=== PATIENT | female | born 1980 | race Caucasian/White ===

== ENCOUNTER 2016-08-27 03:14 | Inpatient (IN) | payer BC ==
[2016-08-27] MEDS ORDERED: Sodium Citrate/Citric Acid* 15 ML UDC PO ONE (06:58)
[2016-08-27] MEDS ORDERED: Buffered Lidocaine 1% SYRIN* 3 ML/SYR SYRINGE INTRADERM ONE (06:58)
[2016-08-27] MEDS ORDERED: Sodium Citrate/Citric Acid* 15 ML UDC ONE (07:11)
[2016-08-27] MEDS ORDERED: ceFAZolin 2 GM PREMIX(*) 2 GM/50 ML BAG IVPB ONE (07:12)
[2016-08-27] MEDS ORDERED: Morphine PF AMP (0.5MG/ML)* 5 MG/10 ML AMP ONE (07:38)
[2016-08-27] MEDS ORDERED: OXYTOCIN* 10 UNITS/ML 1 ML VIAL ONE (07:38)
[2016-08-27] MEDS ORDERED: Phenylephrine IV* 40 MCG/ML 10 ML SYRINGE ONE (07:38)
[2016-08-27] MEDS ORDERED: fentaNYL* 50 MCG/ML 2 ML VIAL (100 MCG VIAL) IV PRN (08:39)
[2016-08-27] MEDS ORDERED: Ondansetron INJ* 2 MG/ML VIAL IV PRN ×2 (08:39→08:40)
[2016-08-27] MEDS ORDERED: diPHENhydraMINE IV* 50 MG/ML 1 ml VIAL (BENADRYL) IV PRN (08:39)
[2016-08-27] MEDS ORDERED: oxyCODONE/Acetamin 5/325 MG* TAB PO PRN ×3 (08:40→09:37)
[2016-08-27] MEDS ORDERED: Naloxone* 0.4 MG/ML 1 ML VIAL IV PRN (08:40)
[2016-08-27] MEDS ORDERED: Dibucaine 1% 28.35 GM TUBE PR PRN (09:37)
[2016-08-27] MEDS ORDERED: Witch Hazel PAD* JAR TOPICAL PRN (09:37)
[2016-08-27] MEDS ORDERED: Acetaminophen TAB* 325 MG PO PRN (09:37)
[2016-08-27] MEDS ORDERED: Glycerin ADULT SUPP PR PRN (09:37)
[2016-08-27] MEDS ORDERED: Famotidine TAB* 20 MG PO PRN (09:39)
[2016-08-27] MEDS ORDERED: Oxytocin in LR* 20 UNITS/1,000 ML BAG IVPB SCH (10:00)
[2016-08-27] MEDS: Ketorolac INJ* 30 MG/ML 1 ML VIAL IV PRN ×3 (11:13→23:42)
[2016-08-27] MEDS: diPHENhydraMINE IV* 50 MG/ML 1 ml VIAL (BENADRYL) IV PRN ×2 (11:23→18:23)
[2016-08-27] MEDS: Simethicone CHEW TAB* 80 MG PO SCH ×3 (12:13→21:01)
[2016-08-27] MEDS: Docusate CAP* 100 MG PO SCH ×2 (14:53→21:01)
--- NOTE | 2016-08-28 03:33 | OP ---
DATE OF OPERATION: 08/27/16 - ROOM #[id number] DATE OF : 82 SURGEON: Eladia Donaldson MD CIRCUS ARTIST: Amparo Cabrera MD ANESTHESIOLOGIST: Dr. Rios. ANESTHESIA: Spinal. PRE-OP DIAGNOSES: Full-term intrauterine , 39 weeks and 1 day, two prior C- sections, desires elective repeat , and bilateral tubal ligation. POST-OP DIAGNOSES: Full-term intrauterine , 39 weeks and 1 day, two prior C- sections, desires elective repeat , and bilateral tubal ligation. OPERATIVE PROCEDURE: Repeat low-flap transverse section via Pfannenstiel, uterus closed in two layers, and bilateral fimbriectomy. ESTIMATED BLOOD LOSS: 500 cc. SPECIMENS: Bilateral fimbriae. FLUIDS: Per Anesthesia. DRAINS: Elliott catheter, drains 700 cc clear urine. COMPLICATIONS: None. COUNTS: Sponge, lap, and needle count were correct x2. FINDINGS: Viable male in the vertex presentation. Clear amniotic fluid. Apgars were 8 and 9. Normal-appearing uterus, normal-appearing ovaries bilaterally, normal-appearing fallopian tubes. There was a true knot in the umbilical cord. There were filmy adhesions of the omentum to the anterior abdominal wall. CONDITION: The patient was brought to the recovery room, awake and in stable condition. DESCRIPTION OF PROCEDURE: The patient was brought to the operating room. When spinal anesthesia was found to be adequate, a Elliott catheter was placed under sterile conditions. The patient was prepped and draped in the usual sterile fashion in the dorsal supine position with a leftward tilt. A time-out was performed. The spinal was tested with the Allis clamps and found to be adequate. A Pfannenstiel skin incision was made through the previous incision site and carried down to the underlying layer of fascia. The fascia was incised in the midline and the fascial incision was extended laterally with the Grijalva scissors. The fascia was grasped with the Rosario clamps and the rectus muscle was dissected using sharp and blunt dissection. The rectus muscle was found to be in the midline. The peritoneum was identified, tented up, and entered with the Metzenbaum scissors. The peritoneal incision was extended superiorly and inferiorly with good visualization of the bladder. There were filmy adhesions of the omentum to the anterior abdominal wall. These were cross clamped with the Lindsey clamps, incised, and tied with Vicryl. Excellent hemostasis was noted. The bladder blade was inserted. The vesicouterine peritoneum was identified and a bladder flap was created. The bladder blade was reinserted. A low-flap transverse incision was made on the uterus to the level of the membranes. The uterine incision was extended laterally bluntly. The was delivered atraumatically from the vertex presentation. The baby was vigorous and the cord was clamped and cut and the infant was handed off to the waiting ham stripper, Dr. Morales. True knot was noted in the cord. The placenta was delivered. The uterus was exteriorized. The uterus was cleared of all clots and debris, and the uterine incision was repaired using 0 Vicryl in a running locked fashion. A second layer of the same suture was used to imbricate and obtain excellent hemostasis. Attention was then turned to the patient's right fallopian tube, which was followed out to the fimbriated end. The tube was doubly clamped with a Lindsey clamp and a free tie of 0 Vicryl was placed and then a suture ligature of 0 Vicryl was placed. The fallopian tube was excised using the Metzenbaum scissors. Excellent hemostasis was noted at the site. Attention was then turned to the patient's left fallopian tube, which was followed out to the fimbriated end, doubly clamped with Lindsey clamps. On both sides, all of the fimbriae were included in the portion to be excised. A free tie was placed on the left side and then a suture ligature was placed and the portion of tube with the fimbriae were excised using the Metzenbaum scissors. Excellent hemostasis was noted on the left side. The abdomen and pelvis were copiously irrigated with warm normal saline. Once again , the tubal ligation sites were examined and found to be hemostatic. The uterine incision site was examined and found to be hemostatic. The uterus was returned to the pelvis. The gutters were cleared of all clots and debris, and once again both tubal sites were examined and found to be hemostatic. The uterine incision was once again examined and found to be hemostatic. The peritoneum was identified and closed using 3-0 Polysorb. The subfascial layer was examined and found to be hemostatic. The fascia was closed using 0 Vicryl. The subcutaneous tissue was irrigated. Any small bleeders were cauterized with the Bovie. The skin was closed with 4-0 Monocryl. Mastisol was applied. Steri-Strips were applied. A pressure dressing was applied and the patient was brought to recovery room awake and in stable condition. The Elliott was draining clear urine. The sequential compression devices were activated throughout the surgery, and we will continue in the recovery room and until the patient is ambulating regularly. [id number]/[facility] #: [id number] MARCEL
[2016-08-28] MEDS: Ketorolac INJ* 30 MG/ML 1 ML VIAL IV PRN (05:34)
[2016-08-28 08:47] LABS: Hematocrit 34 % (35-47); Mean Corpuscular HGB Conc 33 g/dl (31-36); Mean Corpuscular Hemoglobin 31 pg (27-31); Mean Corpuscular Volume 94 fL (80-97); Mean Platelet Volume 9 um3 (7.4-10.4); Red Blood Count 3.57 10^6/ul (4.0-5.4); Red Cell Distribution Width 14 % (10.5-15); White Blood Count 9.3 10^3/ul (3.5-10.8)
[2016-08-28] MEDS ORDERED: Ferrous Gluconate TAB* 324 MG TAB PO SCH (09:00)
[2016-08-28] MEDS: Simethicone CHEW TAB* 80 MG PO SCH ×4 (09:19→20:46)
[2016-08-28] MEDS: Docusate CAP* 100 MG PO SCH ×3 (09:19→20:46)
[2016-08-28] MEDS: Ibuprofen TAB* 600 MG PO PRN ×3 (11:27→23:46)
[2016-08-28] MEDS: oxyCODONE/Acetamin 5/325 MG* TAB PO PRN ×2 (17:30→21:40)
[2016-08-29] MEDS: oxyCODONE/Acetamin 5/325 MG* TAB PO PRN ×5 (01:27→21:41)
[2016-08-29] MEDS: Ibuprofen TAB* 600 MG PO PRN ×3 (05:54→19:55)
[2016-08-29] MEDS: Simethicone CHEW TAB* 80 MG PO SCH ×4 (09:06→21:41)
[2016-08-29] MEDS: Docusate CAP* 100 MG PO SCH ×4 (09:06→21:41)
--- NOTE | 2016-08-29 12:37 | PTEDU ---
Patient Name: HEATHER GUNTER HEATHER GUNTER selected video: BBOB: Bonding Through Massage to view on 08/29/2016 at 12:36:43 PM from [id number]
[2016-08-30] MEDS: Ibuprofen TAB* 600 MG PO PRN ×2 (03:12→10:24)
[2016-08-30] MEDS: oxyCODONE/Acetamin 5/325 MG* TAB PO PRN ×2 (03:13→10:26)
[2016-08-30 08:29] VITALS: BP 99/61
[2016-08-30] MEDS: Simethicone CHEW TAB* 80 MG PO SCH (08:52)
[2016-08-30] MEDS: Docusate CAP* 100 MG PO SCH (08:52)
== END 2016-08-30 11:13 | disposition home or self-care (01) | DRG 540 ==
LOC: UNDOADMIN 03:14 → MCHOB 03:14
PROVIDERS: ADMIT Obstetrics & Gynecology; ATTEND Obstetrics & Gynecology
PROC: 10D00Z1 Extraction of Products of Conception, Low, Open Approach (ICD-10-PCS; 2016-08-27)
PROC: 0UB70ZZ Excision of Bilateral Fallopian Tubes, Open Approach (ICD-10-PCS; 2016-08-27)
PROC: 4A1HX4Z Monitoring of Products of Conception, Cardiac Electrical Activity, External Approach (ICD-10-PCS; principal; 2016-08-27 07:45)
DX: O34.211 Maternal care for low transverse scar from previous cesarean delivery (principal); O09.523 Supervision of elderly multigravida, third trimester; Z3A.39 39 weeks gestation of pregnancy; Z37.0 Single live birth; Z30.2 Encounter for sterilization; O69.2XX0 Labor and delivery complicated by other cord entanglement, with compression, not applicable or unspecified
CPT/HCPCS: 36415; 85025; 88302; A9270-GY; J0690; J1200; J1885; J2590

== ENCOUNTER 2017-02-10 09:19 | Emergency (ER) | payer BC ==
[2017-02-10 09:32] VITALS: BP 102/60
--- NOTE | 2017-02-10 10:04 | UC ---
Benjamin Ruff Angela, scribed for Vivian Washington MD on 02/10/17 at 0953 . Neck Pain HPI - HPI Summary HPI Summary: This pt is a 36 y/o female presenting to [facility] c/o neck pain since last night. Pt reports she was fine last night before going to bed. She states she rolled in the middle of the night and felt left sided neck pain. Pt denies LE or UE weakness or numbness, jaw pain, shoulder pain. Pt notes decreased ROM of her neck secondary to pain, but no central neck pain. She has taken 400 mg of Gabapentin with minimal relief (her dog's Gapapentin). Pt has had neck pain before twice, and has taken muscle relaxants before with relief. She has not been to physical therapy for this. Pt has 3 children. No PMHx. - History of Current Complaint Chief Complaint: UCGeneralIllness Stated Complaint: NECK PAIN Time Seen by Provider: 02/10/17 09:45 Hx Obtained From: Patient Hx Last Menstrual Period: 11/2015 Onset/Duration Of Injury/Symptoms: Hours Onset/Duration: Sudden Onset Aggravating Factors: Movement Alleviating Factors: Nothing Associated Signs & Symptoms: Negative: Swelling, Weakness, Headache - Risk Factors Meningitis Risk Factors: Negative - Allergies/Home Medications Allergies/Adverse Reactions: Allergies Allergy/AdvReac Type Severity Reaction Status Date / Time No Known Allergies Allergy Verified 02/10/17 09:28 PMH/Surg Hx/FS Hx/Imm Hx - Additional Past Medical History Additional PMH: PMHx: neck pain Previously Healthy: Yes Other Endocrine History: DENIES: diabetes Other Cardiovascular History: DENIES: HTN - Surgical History Surgical History: Yes Surgery Procedure, Year, and Place: 08/2016 - Family History Known Family History: Positive: Other - Father: neck pain Parents living and healthy - Social History 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 Alcohol Use: Occasionally Substance Use Type: None Smoking Status (MU): Never Smoked Tobacco - Immunization History Most Recent Influenza Vaccination: 03/21/16 Most Recent Tetanus Shot: 06/04/14 Most Recent Pneumonia Vaccination: never Review Of Systems Constitutional: Positive: Negative Skin: Positive: Negative Eyes: Positive: Negative ENT: Positive: Negative Respiratory: Positive: Negative Cardiovascular: Positive: Negative Gastrointestinal: Positive: Other - no hx of gi upset with nsaid's Genitourinary: Positive: Negative Musculoskeletal: Positive: Decreased ROM - of neck secondary to pain, Other: - neck pain Neurological: Positive: Negative All Other Systems Reviewed And Are Negative: Yes Physical Exam Triage Information Reviewed: Yes Appearance: Well-Appearing, Pain Distress - minimal Vital Signs: Initial Vital Signs Temp 98.4 F 02/10/17 09:28 Pulse 77 02/10/17 09:28 Resp 16 02/10/17 09:28 BP 102/60 02/10/17 09:28 Pulse Ox 98 02/10/17 09:28 Vital Signs Reviewed: Yes Eyes: Positive: Conjunctiva Clear ENT: Positive: Pharynx normal Neck: Positive: No Lymphadenopathy, Tenderness @ - insertion of traps left occipital area., Other: - Marked decrease in range of motion, with flexion to 20 degrees, rotation to the left and right to 30 degrees. No central tenderness. Respiratory: Positive: Lungs clear, Normal breath sounds Cardiovascular: Positive: RRR, No Murmur Musculoskeletal: Positive: ROM Limited @ - cervical spine, as above. Neurological: Positive: Alert, Muscle Tone Normal, Other: - CNII-XII normal. normal shoulder shrug. No pronator drift. 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 Psychological Exam: Normal Skin Exam: Normal Neck Pain Course/Dx - Course Course Of Treatment: Ibuprofen and muscle relaxant. Heat and ice to cervical area. - Differential Dx/Diagnosis Differential Dx/HQI/PQRI: Dystonia, Strain, Torticollis Provider Diagnoses: muscle spasm cervical spine. Discharge - Discharge Plan Condition: Stable Disposition: HOME Prescriptions: Cyclobenzaprine TAB* [Flexeril 10 MG TAB*] 10 mg PO TID PRN #30 tab PRN Reason: Spasms - Neck Patient Education Materials: Muscle Spasm (ED) Additional Instructions: Stop use of gabapentin. Begin use of muscle relaxant, using up to three times daily. It will cause sedation, and after today you might find it most useful to take it at night. Use ibuprofen 600mg three times daily with food to give baseline pain control. Use heat and gentle massage and range of motion exercises as needed. The documentation as recorded by the Benjamin gallegos Angela accurately reflects the service I personally performed and the decisions made by me, Vivian Washington MD.
== END 2017-02-10 10:05 | disposition home or self-care (01) ==
LOC: UCEAST 09:19
DX: M62.830 Muscle spasm of back (principal); M54.2 Cervicalgia
CPT/HCPCS: 99212; G0463

== ENCOUNTER 2018-06-10 06:30 | Day surgery (SDC) | payer BC ==
--- NOTE | 2018-06-06 07:45 | HP ---
PREOPERATIVE HISTORY AND PHYSICAL: DATE OF SURGERY/ADMISSION: 06/10/18 DATE OF OFFICE VISIT/ENCOUNTER: 06/05/18 ATTENDING SURGEON: Gabriella Piña MD.* (DICTATED BY TRAM HARRINGTON) PROCEDURE: Open reduction and internal fixation, left wrist. CHIEF COMPLAINT: Bilateral wrist fractures after fall. 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 She injured her bilateral wrists when she fell ice skating a few days ago. She was in [place] at the time. She went to the hospital there and had some x-ray that showed a comminuted displaced fracture of her left distal radius and of her left ulnar styloid. X-rays of the right wrist show a nondisplaced distal radius fracture. Otherwise, she is quite healthy, but she is currently having a workup for gastrointestinal issues. She has been having some chronic diarrhea and is being assessed for post viral irritable bowel syndrome. After evaluation of her wrist by Dr. Piña and review of x-ray, she has consented to proceed with surgical intervention for the left wrist in the form of an open reduction and internal fixation. PAST MEDICAL HISTORY: 1. History of migraine headaches. 2. Chronic diarrhea. PAST SURGICAL HISTORY: 1. x3. 2. Tubal ligation. 3. [place] teeth extraction. CURRENT MEDICATIONS: 1. Ibuprofen 800 mg t.i.d. p.r.n. 2. Lomotil 2.5-0.025 mg 1 tabs 3 times a day. 3. Fruqb-Yxq-Uraurv daily. 4. Zyrtec Allergy 10 mg daily. ALLERGIES: No known drug allergies. FAMILY MEDICAL HISTORY: Noncontributory. 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 She works at [employer]. She denies tobacco use and some recreational drug use. She does drink alcohol on occasion. REVIEW OF SYSTEMS: Negative for general, cephalic, cardiovascular, and respiratory. GI is positive for chronic diarrhea. is negative. Other musculoskeletal, integumentary, endocrine, neurologic, and hematologic are all negative. Infectious Disease: Negative for history of MRSA, hepatitis C, HIV. PHYSICAL EXAMINATION GENERAL: Well-developed, well-nourished, 38-year-old female, in no acute distress. VITAL SIGNS: Height 5 feet 4 inches, weight 149 pounds. Pulse rate 76, blood pressure 110/64. HEENT: Normocephalic, atraumatic. Pupils are equal, round, and reactive to light. Extraocular movements are intact. Throat is clear. NECK: Supple. No palpable lymph nodes. PULMONARY: Lungs are clear to auscultation bilaterally. No wheezes, rales, or rhonchi. CARDIOVASCULAR: Regular rate and rhythm. S1, S2. No murmurs, rubs, or gallops. No edema. ABDOMEN: Positive bowel sounds. Soft, nontender. MUSCULOSKELETAL: On exam of her bilateral hands, she has moderate swelling in the left, mild on the right. There is resolving ecchymosis on the right wrist. She has good range of motion of the right wrist and tenderness of the distal radius. She has good motion in the fingers of her left hand. Her arm is maintained in a sugar-tong splint. Neurovascular function is intact. NEUROLOGICAL: Alert and oriented x3. Cranial nerves II through XII are intact. DIAGNOSTIC STUDIES: X-rays, AP, lateral, and oblique of both wrists show a left wrist, comminuted, displaced fracture at the distal radius and ulnar styloid process; right wrist nondisplaced distal radius fracture. IMPRESSION: As above. PLAN: The patient is scheduled to undergo an open reduction and internal fixation of the left wrist with Dr. Piña on 06/10/18. She will return to the office 10 days postop for followup and suture removal. A prescription for Percocet was e- scribed at the patient's pharmacy for postoperative pain management. TRAM HARRINGTON [id number]/[facility] #: [id number] [facility]ITAL[facility]
[~2018-06-10 06:30] MED LIST: Buffered Lidocaine 0.9% SYRIN* 5 ML/SYR SYRINGE INTRADERM ONE; Dexamethasone TAB* 4 MG ONE; Dexamethasone TAB* 4 MG PO ONE; DiMENhydriNATE IV* 50 MG/ML VIAL IV PUSH PRN; Famotidine IV* 10 MG/ML 2 ML (20 mg) IV ONE; Famotidine IV* 10 MG/ML 2 ML (20 mg) ONE; Lactated Ringers 1000 ML Bag* 1,000 ML IV SCH; Morphine VIAL* 4 MG/ML VIAL (1 ml vial) IV PRN; Naloxone* 0.4 MG/ML 1 ML VIAL IV PRN; Ondansetron TAB* 4 MG PO ONE; PROCHLORPERAZINE INJ 5 MG/ML 2 ML VIAL IV PRN; Scopolamine 1.5 mg* PATCH TRANSDERM PRN; fentaNYL* 50 MCG/ML 2 ML VIAL (100 MCG VIAL) IV PRN; oxyCODONE/Acetamin 5/325 MG* TAB PO PRN
[2018-06-10] MEDS ORDERED: ceFAZolin 2 GM PREMIX in ORs 2 GM/50 ML BAG IVPB ONE (06:39)
[2018-06-10] MEDS ORDERED: Ondansetron ODT TAB* 4 MG ONE (06:48)
[2018-06-10] MEDS ORDERED: fentaNYL* 50 MCG/ML 2 ML VIAL (100 MCG VIAL) ONE (07:07)
[2018-06-10] MEDS ORDERED: Midazolam* 1 MG/ML 5 ML VIAL (5 MG) ONE (07:07)
[2018-06-10] MEDS ORDERED: ROPIVACAINE 5 MG/ML 30 ML BTL (0.5%) ONE (07:17)
[2018-06-10] MEDS ORDERED: Bupivacaine 0.5%* 50 ML VIAL ONE (07:33)
[2018-06-10] MEDS ORDERED: Lidocaine 1% INJ* 10 MG/ML 30 ML SDV ONE (07:34)
[2018-06-10] MEDS ORDERED: KETAMINE HCL* 50 MG/ML 10 ML VIAL ONE (07:46)
[2018-06-10] MEDS ORDERED: Propofol* 10 MG/ML 20 ML BTL ONE (08:33)
[2018-06-10] MEDS ORDERED: Lidocaine 2% PF * 5 ML VIAL ONE (08:33)
[2018-06-10] MEDS ORDERED: Ketorolac INJ* 30 MG/ML 1 ML VIAL ONE (08:33)
[2018-06-10 09:46] VITALS: BP 118/68
--- NOTE | 2018-06-10 15:44 | OP ---
CC: Dr. Piña OPERATIVE NOTE: DATE OF OPERATION: 06/10/18 DATE OF : 82 SURGEON: Gabriella Piña MD. MANAGER CULTURE: TRAM Mckeon. ANESTHESIA: Block. PRE-OP DIAGNOSIS: Distal radius and ulnar styloid fracture on the left wrist. POST-OP DIAGNOSIS: Distal radius and ulnar styloid fracture on the left wrist. PROCEDURE PERFORMED: Open reduction and internal fixation of the left distal radius and percutaneous pinning of the ulnar styloid. ESTIMATED BLOOD LOSS: Zero. TOURNIQUET TIME: Approximately 45 minutes. INDICATIONS FOR PROCEDURE: Susan is a 38-year-old female who fell and injured her left wrist. She has a displacement fracture of the distal radius as well as a minimally displaced fracture of her ulnar styloid. She presents for open reduction and internal fixation. OPERATIVE PROCEDURE: The patient was brought to the operating room and was given a block anesthetic and placed in supine position on the operating table with a tourniquet around her left upper arm. Sk in of her left upper extremity was prepped and draped in the usual sterile fashion. The hand and for earm were exsanguinated and the tourniquet elevated to 250 mmHg. A longitudinal incision was made ov er the FCR tendon. We dissected through the subcutaneous tissue. The superficial and deep portion o f the FCR tendon sheath was incised longitudinally and the FPL muscle and tendon were retracted ulnar ly. The fracture was then visualized after the pronator quadratus muscle was subperiosteally dissect ed off of the radius. The fracture was reduced with traction and manipulation and then secured with a Synthes distal radius plate with 4 distal and 3 proximal screws. The position of the hardware and fracture coagulants were checked on the C-arm in the AP and lateral views and found to be satisfactor y. Next, a 2.045 inch K-wires were driven through the ulnar styloid fragment and into the ulnar shaf t. The position of the pins was checked around the C-arm in the AP and lateral views and found to be satisfactory. Again, the reduction was good. The wound was irrigated. The pronator quadratus was r epaired over the plate and then the FCR tendon sheath was repaired both with 2- 0 Polysorb suture. T he skin edges were reapproximated with 4-0 nylon suture. The wound was dressed with Xeroform, 4x4, W ebril, and a volar splint. The patient tolerated the procedure well and was brought to the recovery room in good condition. [id number]/[facility] #: [id number]
[2018-06-13] MEDS ORDERED: Scopolamine PATCH Remove* 1 NOTE MISC PATCH OFF ONE (05:45)
== END 2018-06-10 08:45 | disposition home or self-care (01) ==
LOC: OREAST 06:30
PROVIDERS: ATTEND Orthopaedic Surgery
DX: S52.572A Other intraarticular fracture of lower end of left radius, initial encounter for closed fracture (principal); S52.612A Displaced fracture of left ulna styloid process, initial encounter for closed fracture; V00.211A Fall from ice-skates, initial encounter; Y93.21 Activity, ice skating; Y92.330 Ice skating rink (indoor) (outdoor) as the place of occurrence of the external cause
CPT/HCPCS: 76000; A9270-GY; C1713; C1776; J0690; J1885; J2250; J2704; J2795; J3010; J8540